=== PATIENT | female | born 2000 | race Two or more races ===

== ENCOUNTER 2024-05-05 21:56 | Inpatient (IN) ==
[2024-05-05 22:16] VITALS: BMI 29.9
[2024-05-05 23:11] LABS: BILIRUBIN,URINE NEGATIVE (NEGATIVE); BLOOD/HEMOGLOBIN,URINE 1+ (NEGATIVE); GLUCOSE, URINE NEGATIVE (NEGATIVE); KETONES,URINE NEGATIVE (NEGATIVE); LEUKOCYTE ESTERASE ,URINE 1+ (NEGATIVE); NITRITES,URINE NEGATIVE (NEGATIVE); PROTEIN,URINE 2+ (NEGATIVE); UROBILINOGEN,URINE NORMAL (NORMAL)
[2024-05-05 23:19] LABS: APPEARANCE,URINE HAZY (CLEAR); COLOR,URINE YELLOW (YELLOW)
[2024-05-05 23:20] LABS: BASOPHILS # (AUTO) 0.1 X10^3/uL (0.0-0.1); BASOPHILS % (AUTO) 0.8 % (0.2-1.0); EOSINOPHILS # (AUTO) 0.2 x10^3/uL (0.0-0.2); HEMATOCRIT 40.1 % (36.0-47.0); HEMOGLOBIN 13.9 g/dL (12.0-16.0); LYMPHOCYTES # (AUTO) 1.9 X10^3/uL (1.3-2.9); LYMPHOCYTES % (AUTO) 21.5 % (21.0-51.0); MEAN CORPUSCULAR HEMOGLOBIN 30.5 pg (27.0-34.0); MEAN CORPUSCULAR HGB CONC 34.8 g/dL (33.0-35.0); MEAN CORPUSCULAR VOLUME 87.8 fL (80.0-100.0); MEAN PLATELET VOLUME 8.5 fL (7.4-11.0); MONOCYTES # (AUTO) 0.6 x10^3/uL (0.3-0.8); MONOCYTES % (AUTO) 7.3 % (0.0-13.0); NEUTROPHILS # (AUTO) 5.9 x10^3/uL (2.2-4.8); NEUTROPHILS % (AUTO) 68.4 % (42.0-75.0); PLATELET COUNT 206 X10^3/uL (150.0-450.0); RED BLOOD COUNT 4.57 X10^6/uL (3.5-5.4); RED CELL DISTRIBUTION WIDTH 14.7 % (11.6-16.5); WHITE BLOOD COUNT 8.6 X10^3/uL (3.6-10.0)
[2024-05-05 23:21] LABS: BACTERIA,URINE TRACE /HPF (NEGATIVE); SQUAMOUS EPITHELIAL CELL,UR FEW /HPF (NEGATIVE); TRANSITIONAL EPI CELLS,URINE FEW /HPF (NEGATIVE)
[2024-05-05 23:28] LABS: BLOOD UREA NITROGEN 11 mg/dL (7-18); CALCIUM 9.1 mg/dL (8.5-10.1); CARBON DIOXIDE 22.6 mmol/L (21-32); CHLORIDE 100 mmol/L (98-107); CREATININE 0.61 mg/dL (0.55-1.02); GLUCOSE 87 mg/dL (65-99); POTASSIUM 3.6 mmol/L (3.5-5.1); SODIUM 134 mmol/L (136-145); eGFR NON BLACK RACES > 60 (>60)
[2024-05-06] MEDS ORDERED: OXYTOCIN 20 UNIT/1,000 ML-NS 20 UNIT/1,000 ML PLAST..BAG IV PRN (00:47)
[2024-05-06] MEDS ORDERED: REGLAN INJ 10 MG VIAL IVP PRN ×2 (00:47→08:29)
[2024-05-06] MEDS ORDERED: ZOFRAN INJ 4 MG VIAL IVP PRN ×3 (00:47→08:29)
[2024-05-06] MEDS ORDERED: NUBAIN INJ 20 MG AMP IVP PRN (00:47)
--- NOTE | 2024-05-06 00:56 | US ---
PROCEDURE: Obstetrical ultrasound greater than 14 weeks limited study.HISTORY: OB IN LABOR-NO CARE; .TECHNIQUE: Vidal scale, M-mode, and color flow evaluation was performed of the fetus and maternal pelvis.COMPARISON: None.TECHNICAL QUALITY: Satisfactory.FINDINGS:Single viable intrauterine with estimated gestational age 36 weeks 3 days with estimated date of confinement of 05/31/2024. heart rate measured at 131 beats per minute. Fetus is in cephalic presentation. biometryBPD 9.05 cm 35 weeks 5 daysHC 31.75 cm 35 weeks 5 daysAC 36.80 cm 40 weeks 5 daysFL 6.33 cm 32 weeks 5 daysFetal biometric ratiosHC/AC not validFL/BPD 69.9 below lower limits of normal 71.0FL/HC 19.9 below lower limits of normal at 21.0Normal amniotic fluid index of 9.36 cm.Fundal placenta with no previa or abruption. body motion visualized. four-chamber heart, three-vessel cord, kidneys, stomach, and spine were visualized and appeared unremarkable.IMPRESSION:1. Single viable intrauterine with estimated gestational age 36 weeks 3 days with estimated date of confinement of 05/31/2024.2. Abnormal biometric ratios could represent growth retardation.3. No other abnormality identified.THIS IS AN ELECTRONICALLY VERIFIED FINAL REPORT05/06/2024 12:52 AM - Electronically signed by Spike Malik MD
[2024-05-06] MEDS: AMPICILLIN VIAL 2 GRAM 2 G in NS 100 ML IV + SPIKE MINIBAG* 100 ML IV SCH (01:00)
[2024-05-06] MEDS: LR 1,000 ML IV 1,000 ML IV SCH (01:00)
--- NOTE | 2024-05-06 01:18 | DR.H&PGYN ---
H&P OBSTERICS/GYNECOLOGY Date Date of Exam: 05/06/24 Chief Complaint (1) No care in current : Chief Complaint: Patient presents in active labor, G2, P1, with a previous , who desires trial of labor. 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 Patient speaks no [place]. Allergies Allergies Allergy/AdvReac Type Severity Reaction Status Date / Time No Known Allergies Allergy Verified 05/05/24 22:35 History of Present Illness History of Present Illness: No care. Presents to ER in labor at full term. Review of Systems Constitutional: No Symptoms Reported (other than as in HPI, painfull uterine contractions) Obsterical History : 2 Para: 1 Gynecologic History Date of Last Pap Smear: unknown Past Medical History Past Gynecological History: None Past Surgical History Surgical History: (elective planned by history) Social History Does patient currently use any type of tobacco product: No Have you used tobacco products in the last 12 months: No Type of Tobacco Use: None Does any household member use tobacco: No Medications Active Medications Lactated Ringer's (Lr 1,000 Ml Iv) 1,000 mls @ 125 mls/hr IV Q8H KARL Ampicillin Sodium 2 g/ Sodium (Chloride) 100 mls @ 200 mls/hr IV ONCE KARL Metoclopramide HCl (Metoclopramide Inj 10 Mg/2 Ml Vial) 10 mg IVP Q6H PRN PRN Reason: Indigestion/Nausea Nalbuphine HCl (Nalbuphine Hcl Inj 20 Mg/1 Ml Amp) 5 - 10 mg IVP Q2H PRN PRN Reason: MODERATE TO SEVERE PAIN Ondansetron HCl (Ondansetron Hcl 4 Mg/2 Ml Inj) 4 mg IVP Q8H PRN PRN Reason: NAUSEA/VOMITING Physical Exam Temperature: 98.2 F Blood Pressure: 124/82 Respiratory Rate: 18 Pulse Rate: 90 O2 Sat by Pulse Oximetry: 97 Oriented: Normal Respiratory: Normal Cardiovascular: Normal Plan Plan: Patient admitted for management of labor. Offered epidural. Amniotomy and internal monitors. Monitor heart tones and progress. Review H&P Reviewed: Yes Patient was examined?: Yes
[2024-05-06] MEDS: NS 100 ML IV 100 ML ONE ×3 (03:07→08:01)
[2024-05-06] MEDS: AMPICILLIN VIAL 2 GRAM ONE (03:12)
[2024-05-06] MEDS: LR 1,000 ML IV 1,000 ML IV ONE ×2 (03:12→08:32)
[2024-05-06] MEDS: FENTANYL VIAL INJ 100 mcg ONE (03:30)
[2024-05-06] MEDS: NAROPIN EPIDURAL 0.2% 100 ML ONE (03:30)
[2024-05-06 03:36] LABS: RAPID PLASMA REAGIN NONREACTIVE (NONREACTIVE)
[2024-05-06] MEDS: AMPICILLIN VIAL 1 GRAM ONE (05:00)
--- NOTE | 2024-05-06 06:44 | DR.OB ---
OB QUICK NOTE Assessment/Plan (1) No care in current : Assessment/Plan: Patient was 4 cm at previous check with AROM, and has made very little progress despite an adequate labor pattern, to 4.5 cm, with head at a negative station. FHTs reassuring. Have advised patient of the intention to call a section due to failure to progress, with her attempt to , and also to reduce risk due to previous . Previous CS, undocumented. No care with current Failure to progress. Patient asked for a little more time. If no further progress, will proceed to section.
[2024-05-06] MEDS ORDERED: PERCOCET TAB 5/325 MG PO PRN (07:13)
[2024-05-06] MEDS ORDERED: TORADOL 30 MG VIAL IVP PRN (07:13)
[2024-05-06] MEDS ORDERED: BENADRYL INJ 50 MG VIAL IVP PRN ×2 (07:13→08:29)
[2024-05-06] MEDS ORDERED: HYPERRHO S/D (or RHOGAM) IM PRN (07:13)
[2024-05-06] MEDS: NOZIN NASAL SANITIZER TP ONE (07:24)
[2024-05-06] MEDS: LR 1,000 ML IV 1,500 ML IV PRN (07:30)
[2024-05-06] MEDS: REGLAN INJ 10 MG VIAL IVP PRN (07:40)
[2024-05-06] MEDS: ZOFRAN INJ 4 MG VIAL IVP PRN (07:40)
[2024-05-06] MEDS: PEPCID 20 MG VIAL IVP PRN (07:40)
[2024-05-06] MEDS: REGLAN INJ 10 MG VIAL ONE (07:44)
[2024-05-06] MEDS: PEPCID 20 MG VIAL ONE (07:44)
[2024-05-06] MEDS: ZOFRAN INJ 4 MG VIAL ONE (07:44)
[2024-05-06] MEDS: DIPRIVAN VIAL 0 ML ONE (07:46)
[2024-05-06] MEDS: LIDOCAINE 2%-EPI 1:200,000 ONE (07:49)
[2024-05-06] MEDS: ANCEF VIAL 1 GRAM IV PRN (08:00)
[2024-05-06] MEDS: ANCEF VIAL 1 GRAM ONE (08:01)
[2024-05-06] MEDS: TORADOL 30 MG VIAL ONE (08:25)
[2024-05-06] MEDS: OFIRMEV IV 1000 MG VIAL 1,000 MG/100 ML VIAL IV ONE (08:26)
[2024-05-06] MEDS ORDERED: BARHEMSYS INJ IVP PRN (08:29)
[2024-05-06] MEDS: DILAUDID INJ ONE (08:29)
[2024-05-06] MEDS ORDERED: PITOCIN IVP PRN (08:31)
[2024-05-06] MEDS: NS 1,000 ML IV 1,000 ML ONE (08:32)
[2024-05-06] MEDS ORDERED: PITOCIN ONE ×2 (08:32→18:08)
[2024-05-06] MEDS: PITOCIN ONE ×2 (08:32)
[2024-05-06] MEDS ORDERED: DILAUDID INJ PRN (08:34)
[2024-05-06] MEDS: TORADOL 30 MG VIAL IVP PRN (08:38)
[2024-05-06] MEDS ORDERED: LR 1,000 ML IV 1,000 ML IV ONE (08:47)
[2024-05-06] MEDS: OFIRMEV IV 1000 MG VIAL 1,000 MG/100 ML VIAL IV PRN ×2 (08:50→11:42)
[2024-05-06] MEDS: PITOCIN IVP ONE (09:04)
--- NOTE | 2024-05-06 10:01 | DR.OPNOTE ---
OP NOTE Pre-Op Diagnosis: Previous CS, failed , failure to progress Post-Op Diagnosis: same Procedure Date Date Of Procedure: 05/06/24 Procedure: Repeat low transverse section via Pfannensteil Type of Anesthesia: Epidural Anesthetic Findings: Live male infant, 8 lbs 4 oz, with reassuring apgars, adhesions. Operative technique: Patient was taken to the operating room with IV running after proper informed consent was obtained. She had an adequate epidural anesthesia. The patient was prepped and draped in the usual sterile fashion in the dorsal supine position. A Moreno had been inserted in the bladder. The skin was marked in the center and the Pfannenstiel skin incision was made 2 fingerbreadths above the symphysis pubis, noting that the previous incision was made extremely low level with the symphysis. The skin was tested, and anesthesia was found to be adequate. The incision was made with the scalpel, and then carried down to the underlying subcutaneous tissues with the Bovie in cautery mode. The fascia was scored and small bleeders were coagulated at the same time. The fascial incision was extended with the curved Stiles scissors. Next the upper aspect of the fascial incision was tented up with 2 Radha clamps. And the rectus fascia was then dissected off the rectus muscles below coagulating small bleeders at the same time. In a similar fashion the inferior aspect of the fascia was again tented up and dissected off the rectus muscles below. The rectus muscles were then in the midline and there was dense scar tissue encountered. The peritoneum was entered and dissected in a cephalocaudal direction with care not to injure the upper aspect of the bladder. Next a bilateral stretching maneuver was used to evaluate the adequacy of the incision for the delivery of the . The bladder blade was placed. The vesicouterine peritoneum was incised with the Metzenbaum scissors creating a bladder flap. The lower uterine segment was then incised with a scalpel in a transverse fashion until the amniotic membranes were reached. The incision was extended with manual traction and the scalp was delivered atraumatically through the myometrial incision there was no nuchal cord. The body was delivered. The cord was doubly clamped and cut. 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 Next attention was turned to delivering the placenta, and Pitocin infusion was started. The uterus was delivered and curetted with moist laparotomy sponges. The lower uterine segment incision was then closed with a running and locked suture of 0 Vicryl. Hemostasis was observed. At the bladder flap, a 2-0 Vicryl was used to ligate some small bleeders. The uterus was then tilted anteriorly and cul-de-sac was suctioned dry and irrigated. The lower uterine segment was inspected and found to be adequately hemostatic. The parietal peritoneum was then closed with a running suture of 2-0 Vicryl, the muscle layer was irrigated and blotted dry and the fascia reapproximated with 0 Vicryl in a running fashion. The subcutaneous tissue was then irrigated and blotted dry and closed with interrupted sutures of 3-0 Vicryl. The skin was closed with shweta and a sterile dressing was applied the patient was returned to recovery room in stable condition. Specimen/Pathology: Placenta Type of Fluids Used:: Lactated Ringers Total Amount of Fluid Infused:: 1500 Urine output: 200 EBL: 400 Drains/Tubes Placed: Moreno Complications:: none Needle/Sponge Count:: correct Disposition/Condition: Pt. tolerated procedure without difficulty. Extubated in the OR and taken to PACU in stable condition.
[2024-05-06] MEDS: ADACEL or BOOSTRIX TDaP VACCINE IM ONE (11:49)
[2024-05-06] MEDS ORDERED: NS 1,000 ML IV 1,000 ML ONE (18:08)
[2024-05-06] MEDS: OXYTOCIN 20 UNIT/1,000 ML-NS 20 UNIT/1,000 ML PLAST..BAG IV SCH (18:12)
[2024-05-06] MEDS: MOTRIN TAB 800 MG PO PRN (18:27)
[2024-05-07 05:48] LABS: HEMATOCRIT 30.5 % (36.0-47.0); HEMOGLOBIN 10.6 g/dL (12.0-16.0)
--- NOTE | 2024-05-07 08:06 | NOTE.PROBC ---
Progress Note OB-C/S Date Date of Exam: 05/07/24 Subjective Data Subjective: Complaining of pain which she thinks is appropriate for having surgery. Has not had pain medicine in 4 hours. Is eating well. Has not been up to the bathroom yet but the Moreno is still in place. Her pharmacy is [facility] in [place]. Reports no other problems. Objective Data 05/07/24 05:20 05/05/24 23:04 Objective Data: female in no apparent distress. Lungs clear to auscultation bilaterally. Heart regular rate and rhythm. Abdomen soft, nontender. Fundus firm at the umbilicus. Extremities no edema, no cords. Assessment Assessment: day #1 status post repeat section due to failed trial of labor after . Plan (1) No care in current : Plan: Continue plan of care as outlined in orders. Ambulate. Advance to p.o. meds. A prescription will be sent to her pharmacy, and discharge is anticipated for tomorrow.
[2024-05-07] MEDS: PERCOCET TAB 5/325 MG PO PRN (14:22)
[2024-05-07] MEDS: MOTRIN TAB 800 MG PO PRN (19:21)
--- NOTE | 2024-05-08 08:12 | W.DIS.FURT ---
Summary of Discharge Discharge Summary of Date Date of Exam: 05/08/24 Admission Date Date of Admission: 05/06/24 Admission Diagnosis Hospital Course: Patient is a 24-year-old 2 para 2, status post repeat section due to failed trial of labor after . Patient was admitted on Tuesday morning and delivered by section. was complicated by no care, and a previous elective section. After delivery the patient progressed well on the floor. Vital Signs: Vital Signs (72 hours) 05/06/24 01:18 05/05/24 21:58 05/05/24 23:15 Temperature 98.2 F 98.2 F Pulse Rate 90 90 Pulse Rate [Brachial] Respiratory Rate 18 18 Blood Pressure 124/82 128/84 110/78 Blood Pressure [Left Arm] O2 Sat by Pulse Oximetry 97 98 Oxygen Delivery Method Room Air 05/05/24 23:16 05/05/24 23:30 05/05/24 23:30 Temperature Pulse Rate 87 100 H Pulse Rate [Brachial] Respiratory Rate Blood Pressure 112/80 Blood Pressure [Left Arm] O2 Sat by Pulse Oximetry 97 97 Oxygen Delivery Method 05/05/24 23:45 05/05/24 23:45 05/06/24 01:12 Temperature Pulse Rate 90 106 H Pulse Rate [Brachial] Respiratory Rate Blood Pressure 124/82 120/84 Blood Pressure [Left Arm] O2 Sat by Pulse Oximetry 97 Oxygen Delivery Method 05/06/24 01:27 05/06/24 01:42 05/06/24 01:57 Temperature Pulse Rate 115 H 105 H 100 H Pulse Rate [Brachial] Respiratory Rate Blood Pressure 115/83 110/77 120/80 Blood Pressure [Left Arm] O2 Sat by Pulse Oximetry Oxygen Delivery Method 05/06/24 02:14 05/06/24 02:29 05/06/24 02:43 Temperature Pulse Rate 100 H 96 H 91 H Pulse Rate [Brachial] Respiratory Rate Blood Pressure 118/77 119/80 121/81 Blood Pressure [Left Arm] O2 Sat by Pulse Oximetry Oxygen Delivery Method 05/06/24 01:15 05/06/24 02:57 05/06/24 03:24 Temperature 99.3 F Pulse Rate 100 H 104 H Pulse Rate [Brachial] Respiratory Rate 18 Blood Pressure 129/88 136/85 Blood Pressure [Left Arm] O2 Sat by Pulse Oximetry Oxygen Delivery Method 05/06/24 03:30 05/06/24 03:34 05/06/24 03:35 Temperature Pulse Rate 108 H 100 H 101 H Pulse Rate [Brachial] Respiratory Rate Blood Pressure 115/80 117/74 Blood Pressure [Left Arm] O2 Sat by Pulse Oximetry 98 98 Oxygen Delivery Method 05/06/24 03:39 05/06/24 03:40 05/06/24 03:44 Temperature Pulse Rate 104 H 99 H 114 H Pulse Rate [Brachial] Respiratory Rate Blood Pressure 112/76 178/63 Blood Pressure [Left Arm] O2 Sat by Pulse Oximetry 97 Oxygen Delivery Method 05/06/24 03:45 05/06/24 03:50 05/06/24 03:55 Temperature Pulse Rate 100 H 99 H 101 H Pulse Rate [Brachial] Respiratory Rate Blood Pressure 113/77 119/83 Blood Pressure [Left Arm] O2 Sat by Pulse Oximetry 97 97 97 Oxygen Delivery Method 05/06/24 03:58 05/06/24 04:00 05/06/24 04:03 Temperature Pulse Rate 103 H 102 H 109 H Pulse Rate [Brachial] Respiratory Rate Blood Pressure 121/81 128/86 Blood Pressure [Left Arm] O2 Sat by Pulse Oximetry 98 Oxygen Delivery Method 05/06/24 04:05 05/06/24 04:10 05/06/24 04:15 Temperature Pulse Rate 103 H 102 H 105 H Pulse Rate [Brachial] Respiratory Rate Blood Pressure Blood Pressure [Left Arm] O2 Sat by Pulse Oximetry 97 97 96 Oxygen Delivery Method 05/06/24 04:20 05/06/24 04:21 05/06/24 04:25 Temperature Pulse Rate 110 H 104 H 106 H Pulse Rate [Brachial] Respiratory Rate Blood Pressure 109/67 Blood Pressure [Left Arm] O2 Sat by Pulse Oximetry 95 96 Oxygen Delivery Method 05/06/24 04:30 05/06/24 04:35 05/06/24 04:36 Temperature Pulse Rate 94 H 105 H 113 H Pulse Rate [Brachial] Respiratory Rate Blood Pressure 110/65 Blood Pressure [Left Arm] O2 Sat by Pulse Oximetry 97 97 Oxygen Delivery Method 05/06/24 04:40 05/06/24 04:45 05/06/24 04:50 Temperature Pulse Rate 109 H 100 H 101 H Pulse Rate [Brachial] Respiratory Rate Blood Pressure Blood Pressure [Left Arm] O2 Sat by Pulse Oximetry 97 96 96 Oxygen Delivery Method 05/06/24 04:52 05/06/24 04:55 05/06/24 05:00 Temperature Pulse Rate 102 H 98 H 105 H Pulse Rate [Brachial] Respiratory Rate Blood Pressure 113/72 Blood Pressure [Left Arm] O2 Sat by Pulse Oximetry 97 96 Oxygen Delivery Method 05/06/24 05:05 05/06/24 05:06 05/06/24 05:10 Temperature Pulse Rate 105 H 104 H 98 H Pulse Rate [Brachial] Respiratory Rate Blood Pressure 117/72 Blood Pressure [Left Arm] O2 Sat by Pulse Oximetry 96 97 Oxygen Delivery Method 05/06/24 05:15 05/06/24 05:20 05/06/24 05:22 Temperature Pulse Rate 97 H 114 H 113 H Pulse Rate [Brachial] Respiratory Rate Blood Pressure 116/72 Blood Pressure [Left Arm] O2 Sat by Pulse Oximetry 97 97 Oxygen Delivery Method 05/06/24 05:25 05/06/24 05:30 05/06/24 05:35 Temperature Pulse Rate 104 H 94 H 98 H Pulse Rate [Brachial] Respiratory Rate Blood Pressure Blood Pressure [Left Arm] O2 Sat by Pulse Oximetry 96 97 97 Oxygen Delivery Method 05/06/24 05:36 05/06/24 05:40 05/06/24 05:22 Temperature Pulse Rate 100 H 98 H Pulse Rate [Brachial] Respiratory Rate 20 Blood Pressure 116/76 Blood Pressure [Left Arm] O2 Sat by Pulse Oximetry 95 Oxygen Delivery Method 05/06/24 04:21 05/06/24 05:45 05/06/24 05:50 Temperature Pulse Rate 107 H 101 H Pulse Rate [Brachial] Respiratory Rate 18 Blood Pressure Blood Pressure [Left Arm] O2 Sat by Pulse Oximetry 96 95 Oxygen Delivery Method 05/06/24 05:51 05/06/24 05:55 05/06/24 06:00 Temperature Pulse Rate 139 H 106 H 96 H Pulse Rate [Brachial] Respiratory Rate Blood Pressure 101/64 Blood Pressure [Left Arm] O2 Sat by Pulse Oximetry 96 96 Oxygen Delivery Method 05/06/24 06:05 05/06/24 06:07 05/06/24 06:10 Temperature Pulse Rate 110 H 98 H 93 H Pulse Rate [Brachial] Respiratory Rate Blood Pressure 113/78 Blood Pressure [Left Arm] O2 Sat by Pulse Oximetry 96 99 Oxygen Delivery Method 05/06/24 06:15 05/06/24 06:20 05/06/24 06:21 Temperature Pulse Rate 105 H 102 H 104 H Pulse Rate [Brachial] Respiratory Rate Blood Pressure 117/82 Blood Pressure [Left Arm] O2 Sat by Pulse Oximetry 98 98 Oxygen Delivery Method 05/06/24 06:25 05/06/24 06:30 05/06/24 06:35 Temperature Pulse Rate 110 H 104 H 110 H Pulse Rate [Brachial] Respiratory Rate Blood Pressure Blood Pressure [Left Arm] O2 Sat by Pulse Oximetry 97 97 97 Oxygen Delivery Method 05/06/24 06:38 05/06/24 06:40 05/06/24 06:45 Temperature Pulse Rate 94 H 97 H 105 H Pulse Rate [Brachial] Respiratory Rate Blood Pressure 119/74 Blood Pressure [Left Arm] O2 Sat by Pulse Oximetry 98 98 Oxygen Delivery Method 05/06/24 06:50 05/06/24 06:53 05/06/24 06:55 Temperature Pulse Rate 102 H 90 109 H Pulse Rate [Brachial] Respiratory Rate Blood Pressure 114/75 Blood Pressure [Left Arm] O2 Sat by Pulse Oximetry 97 96 Oxygen Delivery Method 05/06/24 07:00 05/06/24 07:05 05/06/24 07:06 Temperature Pulse Rate 101 H 103 H 100 H Pulse Rate [Brachial] Respiratory Rate Blood Pressure 111/74 Blood Pressure [Left Arm] O2 Sat by Pulse Oximetry 97 97 Oxygen Delivery Method 05/06/24 07:10 05/06/24 07:15 05/06/24 07:20 Temperature Pulse Rate 104 H 100 H 98 H Pulse Rate [Brachial] Respiratory Rate Blood Pressure Blood Pressure [Left Arm] O2 Sat by Pulse Oximetry 97 96 97 Oxygen Delivery Method 05/06/24 07:22 05/06/24 07:25 05/06/24 07:36 Temperature Pulse Rate 101 H 102 H 89 Pulse Rate [Brachial] Respiratory Rate Blood Pressure 112/76 Blood Pressure [Left Arm] O2 Sat by Pulse Oximetry 98 97 Oxygen Delivery Method 05/06/24 07:37 05/06/24 07:52 05/06/24 06:55 Temperature 99.5 F Pulse Rate 93 H 90 Pulse Rate [Brachial] Respiratory Rate 20 Blood Pressure 116/78 117/80 Blood Pressure [Left Arm] O2 Sat by Pulse Oximetry Oxygen Delivery Method 05/06/24 02:27 05/06/24 09:09 05/06/24 09:14 Temperature 97.4 F L Pulse Rate 114 H 106 H Pulse Rate [Brachial] Respiratory Rate 20 20 Blood Pressure 118/60 118/66 Blood Pressure [Left Arm] O2 Sat by Pulse Oximetry 100 100 Oxygen Delivery Method Room Air Nasal Cannula Nasal Cannula 05/06/24 09:19 05/06/24 09:24 05/06/24 09:29 Temperature Pulse Rate 111 H 101 H 100 H Pulse Rate [Brachial] Respiratory Rate 20 20 18 Blood Pressure 116/68 113/64 108/62 Blood Pressure [Left Arm] O2 Sat by Pulse Oximetry 100 98 99 Oxygen Delivery Method Nasal Cannula Nasal Cannula Nasal Cannula 05/06/24 09:34 05/06/24 09:39 05/06/24 09:55 Temperature 97.8 F Pulse Rate 98 H 100 H 98 H Pulse Rate [Brachial] Respiratory Rate 18 18 16 Blood Pressure 107/66 112/65 109/68 Blood Pressure [Left Arm] O2 Sat by Pulse Oximetry 98 99 Oxygen Delivery Method Nasal Cannula Nasal Cannula 05/06/24 10:10 05/06/24 10:25 05/06/24 10:40 Temperature 97.5 F L 97.7 F 97.9 F Pulse Rate 96 H 95 H 98 H Pulse Rate [Brachial] Respiratory Rate 16 18 16 Blood Pressure 102/68 106/65 112/66 Blood Pressure [Left Arm] O2 Sat by Pulse Oximetry Oxygen Delivery Method 05/06/24 10:55 05/06/24 11:55 05/06/24 12:55 Temperature 97.9 F 98.3 F 98.0 F Pulse Rate 96 H 109 H 108 H Pulse Rate [Brachial] Respiratory Rate 16 18 18 Blood Pressure 111/69 122/73 113/60 Blood Pressure [Left Arm] O2 Sat by Pulse Oximetry Oxygen Delivery Method 05/06/24 13:55 05/06/24 14:55 05/06/24 16:00 Temperature 98.4 F 98.0 F 98.0 F Pulse Rate 115 H 112 H 114 H Pulse Rate [Brachial] Respiratory Rate 16 18 20 Blood Pressure 107/69 109/66 108/61 Blood Pressure [Left Arm] O2 Sat by Pulse Oximetry Oxygen Delivery Method 05/06/24 16:29 05/06/24 18:27 05/06/24 19:00 Temperature 98.0 F Pulse Rate Pulse Rate [Brachial] 114 H Respiratory Rate 20 18 Blood Pressure Blood Pressure [Left Arm] 108/61 O2 Sat by Pulse Oximetry 97 Oxygen Delivery Method Room Air Room Air 05/06/24 21:00 05/07/24 01:00 05/07/24 04:11 Temperature 98.0 F 98.4 F Pulse Rate Pulse Rate [Brachial] 121 H 107 H Respiratory Rate 20 18 20 Blood Pressure Blood Pressure [Left Arm] 106/70 103/57 O2 Sat by Pulse Oximetry 96 96 Oxygen Delivery Method 05/07/24 04:13 05/07/24 05:11 05/07/24 07:00 Temperature 98.0 F Pulse Rate Pulse Rate [Brachial] 107 H Respiratory Rate 18 19 Blood Pressure Blood Pressure [Left Arm] 105/71 O2 Sat by Pulse Oximetry 96 Oxygen Delivery Method Room Air Room Air 05/07/24 08:00 05/07/24 12:00 05/07/24 14:22 Temperature 98.2 F 99.3 F Pulse Rate Pulse Rate [Brachial] 102 H 104 H Respiratory Rate 17 18 20 Blood Pressure Blood Pressure [Left Arm] 106/73 102/68 O2 Sat by Pulse Oximetry 96 96 Oxygen Delivery Method Room Air Room Air 05/07/24 16:00 05/07/24 15:22 05/07/24 19:21 Temperature 98.7 F Pulse Rate Pulse Rate [Brachial] 97 H Respiratory Rate 18 20 16 Blood Pressure Blood Pressure [Left Arm] 104/70 O2 Sat by Pulse Oximetry 99 Oxygen Delivery Method Room Air 05/07/24 19:00 05/07/24 20:00 05/08/24 00:00 Temperature 99.0 F 97.9 F Pulse Rate Pulse Rate [Brachial] 107 H 71 Respiratory Rate 19 20 Blood Pressure Blood Pressure [Left Arm] 115/70 98/61 O2 Sat by Pulse Oximetry 96 98 Oxygen Delivery Method Room Air Room Air Room Air 05/07/24 20:21 05/08/24 04:00 Temperature 98.0 F Pulse Rate Pulse Rate [Brachial] 83 Respiratory Rate 18 22 Blood Pressure Blood Pressure [Left Arm] 100/65 O2 Sat by Pulse Oximetry 98 Oxygen Delivery Method Room Air Labs: Laboratory Last Values WBC 8.6 X10^3/uL (3.6-10.0) 05/05/24 23:04 RBC 4.57 X10^6/uL (3.5-5.4) 05/05/24 23:04 Hgb 10.6 g/dL (12.0-16.0) L D 05/07/24 05:20 Hct 30.5 % (36.0-47.0) L 05/07/24 05:20 MCV 87.8 fL (80.0-100.0) 05/05/24 23:04 MCH 30.5 pg (27.0-34.0) 05/05/24 23:04 MCHC 34.8 g/dL (33.0-35.0) 05/05/24 23:04 RDW 14.7 % (11.6-16.5) 05/05/24 23:04 Plt Count 206 X10^3/uL (150.0-450.0) 05/05/24 23:04 MPV 8.5 fL (7.4-11.0) 05/05/24 23:04 Neut % (Auto) 68.4 % (42.0-75.0) 05/05/24 23:04 Lymph % (Auto) 21.5 % (21.0-51.0) 05/05/24 23:04 [place] % (Auto) 7.3 % (0.0-13.0) 05/05/24 23:04 Eos % (Auto) 2.0 % (0.9-2.9) 05/05/24 23:04 Baso % (Auto) 0.8 % (0.2-1.0) 05/05/24 23:04 Neut # (Auto) 5.9 x10^3/uL (2.2-4.8) H 05/05/24 23:04 Lymph # (Auto) 1.9 X10^3/uL (1.3-2.9) 05/05/24 23:04 [place] # (Auto) 0.6 x10^3/uL (0.3-0.8) 05/05/24 23:04 Eos # (Auto) 0.2 x10^3/uL (0.0-0.2) 05/05/24 23:04 Baso # (Auto) 0.1 X10^3/uL (0.0-0.1) 05/05/24 23:04 Absolute Nucleated RBC 0.0 /100WBC 05/05/24 23:04 Sodium 134 mmol/L (136-145) L 05/05/24 23:04 Corrected Sodium TNP 05/05/24 23:04 Potassium 3.6 mmol/L (3.5-5.1) 05/05/24 23:04 Chloride 100 mmol/L (98-107) 05/05/24 23:04 Carbon Dioxide 22.6 mmol/L (21-32) 05/05/24 23:04 BUN 11 mg/dL (7-18) 05/05/24 23:04 Creatinine 0.61 mg/dL (0.55-1.02) 05/05/24 23:04 Est GFR (MDRD) Af Amer > 60 (>60) 05/05/24 23:04 Est GFR (MDRD) Non-Af > 60 (>60) 05/05/24 23:04 Glucose 87 mg/dL (65-99) 05/05/24 23:04 Calcium 9.1 mg/dL (8.5-10.1) 05/05/24 23:04 Specimen Type Clean catch urine 05/05/24 22:35 Urine Color Yellow (YELLOW) 05/05/24 22:35 Urine Appearance Hazy (CLEAR) 05/05/24 22:35 Urine pH 6.0 (5.0 - 8.0) 05/05/24 22:35 Ur Specific [place] 1.010 (1.000-1.030) 05/05/24 22:35 Urine Protein 2+ (NEGATIVE) 05/05/24 22:35 Urine Glucose (UA) Negative (NEGATIVE) 05/05/24 22:35 Urine Ketones Negative (NEGATIVE) 05/05/24: Urine Blood 1+ (NEGATIVE) 05/05/24 22:35 Urine Nitrite Negative (NEGATIVE) 05/05/24 22:35 Urine Bilirubin Negative (NEGATIVE) 05/05/24 22:35 Urine Urobilinogen Normal (NORMAL) 05/05/24 22:35 Ur Leukocyte Esterase 1+ (NEGATIVE) 05/05/24 22:35 Urine RBC 5-10 /HPF (0-3) A 05/05/24 22:35 Urine WBC 3-5 /HPF (0-5) 05/05/24 22:35 Ur Squamous Epith Cells Few /HPF (NEGATIVE) 05/05/24 22:35 Ur Transition Epith Cell Few /HPF (NEGATIVE) 05/05/24 22:35 Amorphous Sediment 1+ /HPF (NEGATIVE) 05/05/24 22:35 Urine Bacteria Trace /HPF (NEGATIVE) 05/05/24 22:35 Urine Mucus Few /HPF (NEGATIVE) 05/05/24 22:35 Ur Culture Indicated? No/not indicated 05/05/24 22:35 Urine Opiates Screen Negative (NEG=<300) 05/06/24 02:49 Urine Methadone Screen Negative (NEG=<300) 05/06/24 02:49 Ur Barbiturates Screen Negative (NEG=<200) 05/06/24 02:49 Ur Phencyclidine Scrn Negative (NEG=<25) 05/06/24 02:49 Ur Amphetamines Screen Negative (NEG=<1000) 05/06/24 02:49 U Benzodiazepines Scrn Negative (NEG=<200) 05/06/24 02:49 Urine Cocaine Screen Negative (NEG=<300) 05/06/24 02:49 U Marijuana (THC) Screen Negative (NEG=<50) 05/06/24 02:49 RPR Nonreactive (NONREACTIVE) 05/05/24 23:04 HIV 1&2 Antibody Non reactive (NONREACTIVE) 05/05/24 23:04 HIV P24 Antigen Non reactive (NONREACTIVE) 05/05/24 23:04 Rubella IgG Antibody Positive (POSITIVE) 05/05/24 23:04 Blood Type O POSITIVE 05/05/24 23:09 Antibody Screen Negative 05/05/24 23:04 Reason For Visit: IUP NEAR TERM ONSET OF LABOR Discharge Date Discharge Date: 05/08/24 Discharge Diagnosis All Active Problems (Updated 05/07/24 @ 08:19 by Queta Cuevas MD) delivery delivered (Acute) No care in current (Acute) Plan of Treatment: Continue with present treatment and follow up plan. Pt is to keep follow up appointment as instructed and take medications as ordered. Return to clinic for incision check in 1 week. Discharge Medications Discharge Medications: No Known Allergies Allergy (Verified 05/05/24 22:35) New Prescriptions ibuprofen 800 mg tablet 800 mg PO Q8H PRN #30 tabs 05/07/24 [Rx] oxycodone-acetaminophen 5 mg-325 mg tablet 1 tab PO Q4-6H PRN pain 7 days #28 tabs 05/07/24 [Rx] oxycodone-acetaminophen 5 mg-325 mg tablet 1 tab PO Q6H PRN pain 7 days #28 tabs 05/07/24 [Rx] Discharge Plan Discharge Plan Hospital Course: Patient is a 24-year-old 2 para 2, status post repeat section due to failed trial of labor after . Patient was admitted on Tuesday morning and delivered by section. was complicated by no care, and a previous elective section. After delivery the patient progressed well on the floor. Patient Disposition: HOME, SELF-CARE Condition: Stable Health Concerns: Post Hospitalization: new medications and changes needed to prevent readmission or further decline. Pt educated and given instructions on all concerns. Care Plan Goals: Problem: Pain/Alteration in Comfort Goal: Improve/ Resolve Pain; Achieve Pain Tolerance Instructions: Take pain medications as prescribed. Contact your primary care provider if your pain is unrelieved or worsens. Follow up with primary care provider as directed. Plan of Treatment: Continue with present treatment and follow up plan. Pt is to keep follow up ap pointment as instructed and take medications as ordered. Return to clinic for incision check in 1 week. Prescriptions: New ibuprofen 800 mg Tablet 800 mg PO Q8H PRNQty: 30 0RF oxycodone-acetaminophen 5-325 mg Tablet 1 tab PO Q4-6H MDD 4 PRN (Reason: pain) 7 Days Qty: 28 0RF oxycodone-acetaminophen 5-325 mg Tablet 1 tab PO Q6H MDD 4 PRN (Reason: pain) 7 Days Qty: 28 0RF Follow ups/Referrals Follow ups/Referrals: Queta Cuevas MD [Emergency Provider] - 05/15/24 2:30 pm Instructions Instructions: Rooming-In With Your [facility], Bringing Baby Home: How to Get Ready, and Breast Care, Delivery, Care After, Well Child Nutrition, 0-3 Months Old Stand Alone Forms: Excuse From Work or School, Find Help Web Site, Post Hospital Follow Up Care
[2024-05-08 09:43] VITALS: BP 107/74; PULSE 93; RESP 17; TEMP 98.2; O2SAT 97
== END 2024-05-08 11:40 | disposition home or self-care (01) | DRG 786 ==
LOC: ER 21:56 → LD 05-06 00:48 → MED/SURG 05-06 09:33
PROVIDERS: ADMIT Obstetrics & Gynecology; ATTEND Obstetrics & Gynecology